=== PATIENT | female | born 1950 | race Caucasian/White ===

== ENCOUNTER 2018-12-08 22:50 | Emergency (ER) | payer MEDICARE, BC, MEDICAID ==
--- NOTE | 2018-12-08 23:00 | Emergency Department Record ---
History of Present Illness - General Stated complaint: RASH ON ARM Time Seen by Provider: 12/08/18 22:58 Source: Patient Mode of Arrival: Ambulatory Limitations: No limitations - History of Present Illness Initial comments: 68 yo female presents to ED for evaluation of itching and localized swelling to the proximal aspect of floyd left forearm. Patient denies injury, denies bee sting that she is aware off, denies redness or warmth to the affected area. Patient reports that she was concerned that her arm might "swell up" by morning. MD complaint: Rash Onset/Timin -: Days(s) Location: LUE Severity: Mild Quality: Other (Itching) Consistency: Constant Improves with: None Worsens with: None Context: None Associated symptoms: Denies other symptoms Treatments Prior to Arrival: None - Related Data Home Medications Medication Instructions Recorded Confirmed Last Taken Multivitamin [Multi-Vitamin Daily] 1 tab PO DAILY 12/08/18 12/08/18 12/08/18 Allergies Allergy/AdvReac Type Severity Reaction Status Date / Time erythromycin base Allergy CHEST PAIN Verified 12/08/18 23:01 sertraline [From Zoloft] AdvReac BEHAVIORAL Verified 12/08/18 23:01 CHANGES Review of Systems Constitutional: Denies: Chills, Fever, Malaise, Night sweats Eyes: Denies: Eye discharge, Eye pain ENT: Denies: Congestion, Ear pain, Epistaxis Respiratory: Denies: Cough, Dyspnea Cardiovascular: Denies: Chest pain, Dyspnea on exertion Endocrine: Denies: Fatigue, Heat or cold intolerance Gastrointestinal: Denies: Abdominal pain, Nausea, Vomiting Genitourinary: Denies: Incontinence, Retention Musculoskeletal: Denies: Arthralgia, Back pain Skin: Reports: Rash. Denies: Bruising, Change in color, Change in hair/nails Neurological: Denies: Abnormal gait, Confusion, Headache, Seizure Psychiatric: Denies: Anxiety Hematological/Lymphatic: Denies: Anemia, Blood Clots, Easy bleeding Physical Exam - General General Appearance: Alert, Oriented x3, Cooperative, No acute distress Limitations: No limitations - Head Head exam: Atraumatic, Normocephalic, Normal inspection Head exam detail: negative: Abrasion, Contusion, Spencer's sign, General tenderness, Hematoma, Laceration - Eye Eye exam: Normal appearance. negative: Conjunctival injection, Periorbital swelling, Periorbital tenderness, Scleral icterus - ENT Ear exam: negative: Auricular hematoma, Auricular trauma Nasal Exam: negative: Active bleeding, Discharge, Dried blood, Foreign body Mouth exam: negative: Drooling, Laceration, Muffled voice, Tongue elevation Teeth exam: negative: Dental caries, Dental tenderness # - Neck Neck exam: Normal inspection. negative: Meningismus, Tenderness - Respiratory Respiratory exam: Normal lung sounds bilaterally. negative: Rales, Respiratory distress, Rhonchi, Stridor - Cardiovascular Cardiovascular Exam: Regular rate, Normal rhythm, Normal heart sounds - GI/Abdominal GI/Abdominal exam: Soft. negative: Rebound, Rigid, Tenderness - Rectal Rectal exam: Deferred - exam: Deferred - Extremities Extremities exam: Other (Small, raised area to the proximal aspect of the left forearm dorsally measuring approximately 4-5 cm in diameter, no erythema or clinical signs of infection are present. Findings appear c/w localized reaction.). negative: Calf tenderness, Pedal edema, Tenderness - Back Back exam: Denies: CVA tenderness (R), CVA tenderness (L) - Neurological Neurological exam: Alert, Normal gait, Oriented X3 - Psychiatric Psychiatric exam: Normal affect, Normal mood - Skin Skin exam: Normal color. negative: Abrasion Type of lesion: negative: abrasion Course - Reevaluation(s) Reevaluation #1: 12/08/18 23:07 Patient was seen and examined. Findings appear c/w localized reaction likely from insect bite. Recommended topical hydrocortisone for itching symptoms. No clinical signs of cellulitis are present on examination. Patient appears stable for discharge at this time. Disposition Disposition: Discharge Clinical Impression: Local reaction to insect sting Qualifiers: Encounter type: initial encounter Injury intent: undetermined intent Qualified Code(s): T63.484A - Toxic effect of venom of other arthropod, undetermined, initial encounter Disposition: Home, Self-Care Condition: (2) Stable Instructions: Insect Bite or Sting (ED) Additional Instructions: Return to ED if your symptoms worsen or if you have any concerns. Hydrocortisone cream as directed. Follow-up with your family doctor in 3-5 days as directed. Forms: Patient Portal Access Time of Disposition: 23:00 Quality - Quality Measures Quality Measures: N/A - Blood Pressure Screening Does Patient Have Any of the Following: No Blood Pressure Classification: Pre-Hypertensive BP Reading Systolic Measurement: 134 Diastolic Measurement: 76 Screening for High Blood Pressure: < Pre-Hypertensive BP, F/U Documented > [G8950] Pre-Hypertensive Follow-up Interventions: Referral to alternative/primary care provider.
== END 2018-12-08 23:13 | disposition home or self-care (01) ==
LOC: ER 22:50
DX: S50.862A Insect bite (nonvenomous) of left forearm, initial encounter (principal); W57.XXXA Bitten or stung by nonvenomous insect and other nonvenomous arthropods, initial encounter
CPT/HCPCS: 99282

== ENCOUNTER 2019-05-05 20:16 | Emergency (ER) | payer MEDICARE, BC, MEDICAID ==
--- NOTE | 2019-05-05 20:38 | Emergency Department Record ---
History of Present Illness - General Chief complaint: Fatigue and Weakness Stated complaint: ARMS FEEL HEAVY/PRESSURE ON CHEST Time Seen by Provider: 05/05/19 20:17 Source: Patient Mode of Arrival: Ambulatory Limitations: No limitations - History of Present Illness Initial comments: 68 yo female presents to ED for evaluation of her "arms feeling heavy" bilaterally, a wave of "chest discomfort" that has since resolved and occurred at rest. Patient reports that laying supine has improved her symptoms. Patient is concerned as she has been under a lot of stress, has not been eating well, and report that her symptoms may be due to GERD, Patient contacted her sibling who recommended coming to the ED for evaluation "in case its a heart attack". Patient denies history of cardiac or lung problems, denies pain with inspiration, denies calf pain or history of DVT. Patient denies fevers, chills, or cough symptoms. MD Complaint: Generalized weakness Onset/Timin -: Hour(s) Location: Generalized Severity: Moderate Consistency: Now resolved Improves with: None Worsens with: None Context: Other Associated Symptoms: Denies other symptoms - Nura Coma Scale Eye Response: (4) Open spontaneously Motor Response: (6) Obeys commands Verbal Response: (5) Oriented Nura Total: 15 - Related Data Allergies Allergy/AdvReac Type Severity Reaction Status Date / Time erythromycin base Allergy CHEST PAIN Verified 05/05/19 21:31 sertraline [From Zoloft] AdvReac BEHAVIORAL Verified 05/05/19 21:31 CHANGES Review of Systems Constitutional: Denies: Chills, Fever, Malaise, Night sweats Eyes: Denies: Eye discharge, Eye pain ENT: Denies: Congestion, Ear pain, Epistaxis Respiratory: Denies: Cough, Dyspnea Cardiovascular: Reports: Chest pain. Denies: Dyspnea on exertion Endocrine: Reports: Fatigue. Denies: Heat or cold intolerance Gastrointestinal: Denies: Abdominal pain, Nausea, Vomiting Genitourinary: Denies: Incontinence, Retention Musculoskeletal: Denies: Arthralgia, Back pain Skin: Denies: Bruising, Change in color Neurological: Denies: Abnormal gait, Confusion, Headache, Seizure Psychiatric: Reports: Anxiety Hematological/Lymphatic: Denies: Anemia, Blood Clots Past Medical History - SOCIAL HISTORY Smoking Status: Never smoker Drug Use: None - RESPIRATORY Hx Respiratory Disorders: No - CARDIOVASCULAR Hx Cardio Disorders: Yes Comment:: murmur as child - NEURO Hx Neuro Disorders: No - GI Hx GI Disorders: No - ENDOCRINE Hx Endocrine Disorders: No - MUSCULOSKELETAL Hx Musculoskeletal Disorders: Yes Hx Osteoporosis: Yes Comment:: Ausgoodslader's R knee - PSYCH Hx Psych Problems: Yes Hx Anxiety: Yes Hx Depression: Yes - HEMATOLOGY/ONCOLOGY Hx Hematology/Oncology Disorders: No Family Medical History Hx Dementia: Mother Hx Heart Disease: Father, Mother, Grandparents Hx HTN: Father, Mother, Brother/Sister, Grandparents Hx Kidney Disease: Father *Kidney Comment: RF Physical Exam - General General Appearance: Alert, Oriented x3, Cooperative, Mild distress Limitations: No limitations - Head Head exam: Atraumatic, Normocephalic, Normal inspection Head exam detail: negative: Abrasion, Contusion, Spencer's sign, General tenderness, Hematoma, Laceration - Eye Eye exam: Normal appearance. negative: Conjunctival injection, Periorbital swelling, Periorbital tenderness, Scleral icterus - ENT Ear exam: negative: Auricular hematoma, Auricular trauma Nasal Exam: negative: Active bleeding, Discharge, Dried blood, Foreign body Mouth exam: negative: Drooling, Laceration, Muffled voice, Tongue elevation - Neck Neck exam: Normal inspection. negative: Meningismus, Tenderness - Respiratory Respiratory exam: Normal lung sounds bilaterally. negative: Rales, Respiratory distress, Rhonchi, Stridor - Cardiovascular Cardiovascular Exam: Regular rate, Normal rhythm, Normal heart sounds - GI/Abdominal GI/Abdominal exam: Soft. negative: Rebound, Rigid, Tenderness - Rectal Rectal exam: Deferred - exam: Deferred - Extremities Extremities exam: Normal inspection. negative: Pedal edema, Tenderness - Back Back exam: Reports: Normal inspection. Denies: CVA tenderness (R), CVA tenderness (L) - Neurological Neurological exam: Alert, Normal gait, Oriented X3 - Psychiatric Psychiatric exam: Normal affect, Normal mood - Skin Skin exam: Normal color. negative: Abrasion Type of lesion: negative: abrasion Course - Reevaluation(s) Reevaluation #1: 05/05/19 20:38 EKG: NSR 62 Normal axis, normal intervals No acute ST-T wave changes Reevaluation #2: 05/05/19 21:26 Laboratory studies were reviewed and appear grossly unremarkable for an acute process. The patient was deemed to be low-risk for cardiac disease based on the patients history and evaluation in the ED, HEART Score was applied and found to be 2. As a result, repeat Troponin in 3-hours appears appropriate and if negative for myocardial injury, the patient may be discharged home with appropriate outpatient follow-up for further evaluation. Patient was updated on her results thus far, reports that she is feeling much improved with resting in the ED. All questions were answered at this time, patient denies needs. Reevaluation #3: 05/05/19 23:53 Repeat troponin appears negative for myocardial injury. Patient is resting comfortably on re-examination, appears stable for discharge with instructions to follow-up with her PCP in 2-3 days as directed. Medical Decision Making - Lab Data Result diagrams: 05/05/19 20:30 05/05/19 20:30 Disposition Disposition: Discharge Clinical Impression: Atypical chest pain Disposition: Home, Self-Care Condition: (2) Stable Instructions: Chest Pain (ED) Additional Instructions: Return to ED if your symptoms worsen or if you have any concerns. Follow-up with your family doctor in 3-5 days as directed. Forms: Patient Portal Access Time of Disposition: 23:54 Quality - Quality Measures Quality Measures: N/A - Blood Pressure Screening Does Patient Have Any of the Following: No Blood Pressure Classification: Hypertensive Reading Systolic Measurement: 157 Diastolic Measurement: 90 Screening for High Blood Pressure: < First Hypertensive BP, F/U Documented > [G8950] First Hypertensive Follow-up Interventions: Referral to alternative/primary care provider.
[2019-05-05 20:54] LABS: HEMATOCRIT 36.5 % (35.0-47.0); HEMOGLOBIN 12.1 gm/dl (11.6-16.0); MEAN CELL VOLUME 93.8 fl (81-97); MEAN CORPUSCULAR HEMOGLOBIN 31.1 pg (27-33); MEAN CORPUSCULAR HGB CONC 33.2 g/dl (32-36); MEAN PLATELET VOLUME 9.7 fl (7.4-10.4); PLATELET COUNT 363 K/uL (130-400); RED BLOOD COUNT 3.89 M/uL (3.80-5.40); RED CELL DISTRIBUTION WIDTH 11.2 % (11.5-14.5); WHITE BLOOD COUNT W/O DIFF 4.3 K/uL (4.2-12.2)
[2019-05-05 21:10] LABS: BLOOD UREA NITROGEN 16 mg/dL (8-23); CREATININE 0.7 mg/dL (0.5-0.9); EST GLOMERULAR FILTRATION RATE > 60 mL/min
[2019-05-05 21:11] LABS: TOTAL PROTEIN 7.6 g/dL (6.6-8.7)
[2019-05-05 21:13] LABS: GLUCOSE,RANDOM 101 mg/dL (74-109)
[2019-05-05 21:15] LABS: ALT/SGPT 18 U/L (<33)
[2019-05-05 21:16] LABS: ALB/GLOB RATIO 1.8 (1.1-1.8); ALBUMIN 4.9 g/dL (4.0-5.0); ALKALINE PHOSPHATASE 61 U/L (35-104); AST/SGOT 31 U/L (10.0-35.0)
== END 2019-05-06 00:18 | disposition home or self-care (01) ==
LOC: ER 20:16
DX: R07.89 Other chest pain (principal); R53.83 Other fatigue
CPT/HCPCS: 80053; 84484; 85027; 93005; 93010; 99284

== ENCOUNTER 2019-05-26 12:54 | Emergency (ER) | payer MEDICARE, BC, MEDICAID ==
[2019-05-26 14:00] LABS: INFLUENZA A NEGATIVE (NEGATIVE)
[2019-05-26 14:01] LABS: INFLUENZA B POSITIVE (NEGATIVE); STREP A SCREEN NEGATIVE (NEGATIVE)
[2019-05-26] MEDS ORDERED: IBUPROFEN 600 MG TABLET PO ONE (14:14)
--- NOTE | 2019-05-26 14:35 | RADIOLOGY REPORT ---
EXAMINATION: Frontal and Lateral Chest EXAM DATE: 05/26/2019 2:23 PM INDICATION: cough FINDINGS: Mild scarring or atelectasis at the left lung base. No acute infiltrates or effusions. Card iac silhouette is normal. Dictated by: Nestor Marroquin MD on 05/26/2019 2:33 PM. .
--- NOTE | 2019-05-26 14:51 | Emergency Department Record ---
History of Present Illness - General Chief Complaint: Cough Stated Complaint: COUGH, CLAUDIA, Time Seen by Provider: 05/26/19 13:15 Source: Patient Mode of Arrival: Ambulatory Limitations: No limitations - History of Present Illness Initial Comments: pt sushmant felt well since with fever, chills, sore throat, cough, body aches Complaint: Cough, Fever, Sore throat Onset/Timin -: Days(s) Consistency: Getting worse Context: Sick contacts Associated Symptoms: Cough, Hoarseness, Myalgias, Sore throat - Related Data Home Medications Medication Instructions Recorded Confirmed Last Taken Nicotine Polacrilex [Nicotine 6 tab BC DAILY 05/26/19 05/26/19 05/26/19 Lozenge] Previous Rx's Medication Instructions Recorded Oseltamivir Phosphate [Tamiflu] 75 mg PO BID #10 capsule 05/26/19 Allergies Allergy/AdvReac Type Severity Reaction Status Date / Time erythromycin base Allergy CHEST PAIN Verified 05/05/19 21:31 sertraline [From Zoloft] AdvReac BEHAVIORAL Verified 05/05/19 21:31 CHANGES Travel Screening - Travel/Exposure Within Last 30 Days Have you traveled within the last 30 days?: No - Travel/Exposure Within Last Year Have you traveled outside the [place] in the last year?: No - Additonal Travel Details Have you been exposed to anyone with a communicable illness?: No Review of Systems Reviewed: No additional complaints except as noted below Constitutional: Reports: As per HPI. Denies: Chills, Fever, Malaise, Night sweats, Weakness, Weight change Eyes: Reports: As per HPI. Denies: Eye discharge, Eye pain, Photophobia, Vision change ENT: Reports: As per HPI. Denies: Congestion, Dental pain, Ear pain, Epistaxis, Hearing loss, Throat pain Respiratory: Reports: As per HPI. Denies: Cough, Dyspnea, Hemoptysis, Stridor, Wheezes Cardiovascular: Reports: As per HPI. Denies: Arrhythmia, Chest pain, Dyspnea on exertion, Edema, Murmurs, Orthopnea, Palpitations, Paroxysmal nocturnal dyspnea, Rheumatic Fever, Syncope Endocrine: Reports: As per HPI. Denies: Fatigue, Heat or cold intolerance, Polydipsia, Polyuria Gastrointestinal: Reports: As per HPI. Denies: Abdominal pain, Constipation, Diarrhea, Hematemesis, Hematochezia, Melena, Nausea, Vomiting Genitourinary: Reports: As per HPI. Denies: Abnormal menses, Discharge, Dyspareunia, Dysuria, Frequency, Hematuria, Incontinence, Retention, Urgency Musculoskeletal: Reports: As per HPI. Denies: Arthralgia, Back pain, Gout, Joint swelling, Myalgia, Neck pain Skin: Reports: As per HPI. Denies: Bruising, Change in color, Change in hair/nails, Lesions, Pruritus, Rash Neurological: Reports: As per HPI. Denies: Abnormal gait, Confusion, Headache, Numbness, Paresthesias, Seizure, Tingling, Tremors, Vertigo, Weakness Psychiatric: Reports: As per HPI. Denies: Anxiety, Auditory hallucinations, Depression, Homicidal thoughts, Suicidal thoughts, Visual hallucinations Hematological/Lymphatic: Reports: As per HPI. Denies: Anemia, Blood Clots, Easy bleeding, Easy bruising, Swollen glands Past Medical History - SOCIAL HISTORY Smoking Status: Former smoker Alcohol Use: None Drug Use: None - RESPIRATORY Hx Respiratory Disorders: Yes Hx Asthma: Yes Hx Bronchitis: Yes - CARDIOVASCULAR Hx Cardio Disorders: Yes Comment:: murmur as child - NEURO Hx Neuro Disorders: No Comment:: unconscious for 3 days in 1971. - GI Hx GI Disorders: No Hx Liver Disease: Yes (hemangioma) - Hx Genitourinary Disorders: No - ENDOCRINE Hx Endocrine Disorders: No - MUSCULOSKELETAL Hx Musculoskeletal Disorders: Yes Hx Osteoporosis: Yes Comment:: Ausgoodslader's R knee - PSYCH Hx Psych Problems: Yes Hx Anxiety: Yes Hx Depression: Yes - HEMATOLOGY/ONCOLOGY Hx Hematology/Oncology Disorders: No Family Medical History Any Significant Family History?: No Hx Dementia: Mother Hx Heart Disease: Father, Mother, Grandparents Hx HTN: Father, Mother, Brother/Sister, Grandparents Hx Kidney Disease: Father *Kidney Comment: RF Physical Exam - General General Appearance: Alert, Oriented x3, Cooperative, Mild distress Limitations: No limitations - Head Head exam: Normal inspection - Eye Eye exam: Normal appearance, PERRL, EOMI Pupils: Normal accommodation - ENT ENT exam: Normal exam, Mucous membranes moist, Normal external ear exam, Normal orophraynx Ear exam: Normal external inspection. negative: External canal tenderness Nasal Exam: Normal inspection. negative: Discharge, Sinus tenderness Mouth exam: Normal external inspection, Tongue normal Teeth exam: Normal inspection. negative: Dental caries Throat exam: Tonsillar erythema. negative: Tonsillar exudate - Neck Neck exam: Normal inspection, Full ROM. negative: Tenderness - Respiratory Respiratory exam: Normal lung sounds bilaterally. negative: Respiratory distress - Cardiovascular Cardiovascular Exam: Regular rate, Normal rhythm, Normal heart sounds - GI/Abdominal GI/Abdominal exam: Soft, Normal bowel sounds. negative: Tenderness - Rectal Rectal exam: Deferred - exam: Deferred - Extremities Extremities exam: Normal inspection, Full ROM, Normal capillary refill. negative: Tenderness - Back Back exam: Reports: Normal inspection, Full ROM. Denies: Muscle spasm, Rash noted, Tenderness - Neurological Neurological exam: Alert, CN II-XII intact, Normal gait, Oriented X3 - Psychiatric Psychiatric exam: Normal affect, Normal mood - Skin Skin exam: Dry, Intact, Normal color, Warm Course Vital Signs 05/26/19 05/26/19 12:58 13:52 Temperature 98.2 F Pulse Rate 84 Pulse Rate [ 75 Right] Respiratory 18 20 Rate Blood Pressure 143/80 Blood Pressure 137/79 [Left Arm] Pulse Ox 97 98 Medical Decision Making - Lab Data Lab Results 05/26/19 Range/Units 13:40 Influenza Type A Ag Negative (NEGATIVE) Influenza Type B Ag Positive H (NEGATIVE) Group A Strep Screen Negative (NEGATIVE) Disposition Disposition: Discharge Clinical Impression: Influenza B Disposition: Home, Self-Care Condition: (1) Good Instructions: Influenza (ED) Additional Instructions: follow up with family doctor. return sooner if worse. tylenol and motrin as needed. push fluids. Prescriptions: Oseltamivir Phosphate [Tamiflu] 75 mg PO BID #10 capsule Quality - Quality Measures Quality Measures: N/A - Blood Pressure Screening Does Patient Have Any of the Following: No Blood Pressure Classification: Pre-Hypertensive BP Reading Systolic Measurement: 143 Diastolic Measurement: 80 Screening for High Blood Pressure: < Pre-Hypertensive BP, F/U Documented > [G8950] Pre-Hypertensive Follow-up Interventions: Follow-up with rescreen every year.
== END 2019-05-26 14:57 | disposition home or self-care (01) ==
LOC: ER 12:54
DX: J10.1 Influenza due to other identified influenza virus with other respiratory manifestations (principal); Z87.891 Personal history of nicotine dependence
CPT/HCPCS: 71046; 87400; 87880; 99284